=== PATIENT | male | born 1940 | race Caucasian/White ===

== ENCOUNTER → 2018-03-03 14:31 | Outpatient (POV) | payer MEDICARE, BC, SELFPAY | PROVIDERS: Family Provider Family Medicine; PCP Family Medicine | DX: Z00.00 Encounter for general adult medical examination without abnormal findings (principal) ==

== ENCOUNTER → 2018-09-21 15:13 | Outpatient (CLI) | payer MEDICARE, BC, SELFPAY ==
[2018-09-21 17:13] LABS: Prostate Specific Ag, Diagnost 0.83 ng/mL (0.0-4.0)
== END ==
PROVIDERS: Visit Provider Urology
DX: N40.0 Benign prostatic hyperplasia without lower urinary tract symptoms (principal)
CPT/HCPCS: 36415; 84153

== ENCOUNTER → 2019-03-02 14:26 | Outpatient (POV) | payer MEDICARE, BC, SELFPAY | DX: Z00.00 Encounter for general adult medical examination without abnormal findings (principal) ==

== ENCOUNTER → 2019-05-11 14:31 | Outpatient (POV) | payer MEDICARE, BC, SELFPAY | PROVIDERS: Visit Provider Internal Medicine | DX: Z00.00 Encounter for general adult medical examination without abnormal findings (principal) ==

== ENCOUNTER → 2019-05-24 09:05 | Outpatient (POV) | payer MEDICARE, BC, SELFPAY | PROVIDERS: Visit Provider Dermatology | DX: Z00.00 Encounter for general adult medical examination without abnormal findings (principal) ==

== ENCOUNTER → 2019-06-15 14:03 | Outpatient (POV) | payer MEDICARE, BC, SELFPAY | DX: Z00.00 Encounter for general adult medical examination without abnormal findings (principal) ==

== ENCOUNTER → 2020-04-10 16:24 | Outpatient (POV) | payer MEDICARE, BC, SELFPAY | PROVIDERS: Visit Provider Dermatology | DX: Z00.00 Encounter for general adult medical examination without abnormal findings (principal) ==

== ENCOUNTER 2020-09-05 10:34 | Emergency (ER) | payer MEDICARE, BC, SELFPAY ==
--- NOTE | 2020-09-05 10:41 | XR_ITS ---
PROCEDURE: XR SHOULDER RT MIN 2V CLINICAL INDICATION: FELL ON ICE Pain with movement COMPARISON: No exams were available for comparison FINDINGS: There is no fracture or dislocation. The acromioclavicular joint remains well approximated. Humeral acromial distance is normal. There is normal glenohumeral space and alignment. There is narrowing of the coracohumeral distance which can cause subcoracoid impingement correlate clinically. There is diffuse osteopenia. IMPRESSION: Possible subcoracoid impingement. Osteopenia. No acute fracture. Dictated by: Mine Jackson MD 09/05/2020 11:40 Mine Jackson MD in [place] 09/05/2020 11:40
[2020-09-05 10:45] VITALS: BP 138/90; PULSE 63; RESP 17; TEMP 36.8; O2SAT 98; BMI 29.4
--- NOTE | 2020-09-05 12:00 | HMH.EDUTC ---
[facility] [place] Clinical Impression: Right anterior shoulder pain Contusion of right shoulder Qualifiers: Encounter type: initial encounter Qualified Code(s): S40.011A - Contusion of right shoulder, initial encounter Right shoulder pain Qualifiers: Chronicity: unspecified Qualified Code(s): M25.511 - Pain in right shoulder Disposition: Home, Self-Care Condition on Discharge: Good Instructions: DI for Shoulder Pain Additional Instructions: Rest the extremity, apply ice for 15 minutes as tolerated three or four times per day, Elevate the extremity as tolerated while you are resting. Take ibuprofen for pain. Follow up with Dr. Mosquera (orthopedics). Sometimes there can be fractures that don't show up well on the first set of x-rays. So, you should follow up if you continue to have symptoms. I put in a referral but you need to call his office and schedule an appointment. Follow up with your regular doctor. GO TO THE ER FOR ANY WORSENING SYMPTOMS Referrals: Dinesh Davis MD [Primary Care Provider] - Ja Mosquera MD [Staff Physician] - Time of Disposition: 12:04 Medical Decision Making - Medical Records Medical records reviewed: No: I reviewed the patient's medical records. - Santos Inquiry Pt receiving controlled substance: No Vital Signs: 09/05/20 10:45 09/05/20 12:11 Temperature 98.2 F 98.2 F Temperature Source Oral Pulse Rate 63 Pulse Rate [Right Brachial] 63 Respiratory Rate 17 17 Blood Pressure 138/90 Blood Pressure [Right Arm] 138/90 Blood Pressure Mean [Right Arm] 106 Blood Pressure Source [Right Arm] Automatic Cuff Blood Pressure Position [Right Arm] Sitting 02 Sat by Pulse Oximetry 98 Oxygen Delivery Method Room Air - Radiology Data #1 Image(s): Shoulder Image Reviewed: Yes I reviewed the patient's radiology image, Yes I have reviewed radiologist's interpretation Preliminary Findings: Abnormal, No Fracture Seen PROCEDURE: XR SHOULDER RT MIN 2V CLINICAL INDICATION: FELL ON ICE Pain with movement COMPARISON: No exams were available for comparison FINDINGS: There is no fracture or dislocation. The acromioclavicular joint remains well approximated. Humeral acromial distance is normal. There is normal glenohumeral space and alignment. There is narrowing of the coracohumeral distance which can cause subcoracoid impingement correlate clinically. There is diffuse osteopenia. IMPRESSION: Possible subcoracoid impingement. Osteopenia. No acute fracture. Dictated by: Mine Jackson MD 09/05/2020 11:40 Mine Jackson MD in [place] 09/05/2020 11:40 [facility] [place] - General Stated complaint: AO [id number] right shoulder pain Time Seen by Provider: 09/05/20 10:50 Mode of Arrival: Ambulatory Source of Information: Patient Limitations: No Limitations Description of Symptoms (Recalled from Triage Doc. by RN): PATIENT STATES HE FELL ON ICE APPROX 0900 THIS MORNING AND INJURED RIGHT SHOULDER HEENT Symptoms (Recalled from RN notes): No Resp Symptoms (Recalled from RN notes): No Skin Symptoms (Recalled from RN notes): No MS Symptoms (Recalled from RN notes): Yes Functional Status (Recalled from RN notes): WNL - History of Present Illness Provider Complaint: He states that about 1 hour ago he fell on ice and came down on his right shoulder. Since then he has had right shoulder pain. He denies any other injury. - Related Data Home Medications Medication Instructions Recorded Confirmed aspirin 81 mg tablet,delayed 81 mg PO ONCE 11/24/17 09/21/18 release lisinopril 5 mg tablet 5 mg PO ONCE 11/24/17 09/21/18 nitroglycerin 0.4 mg sublingual 0.4 mg SUBLINGUAL Q5M PRN 11/24/17 09/21/18 tablet simvastatin 40 mg tablet 40 mg PO QAM 11/24/17 09/21/18 tamsulosin 0.4 mg capsule 0.4 mg PO ONCE 11/24/17 09/21/18 Allergies Allergy/AdvReac Type Severity Reaction Status Date / Time No Known Allergies Allergy Verified 03/30/20 11:17 - Worke
[2020-09-05 12:11] VITALS: BP 138/90; PULSE 63; RESP 17; TEMP 36.8; O2SAT 98
== END 2020-09-05 12:12 | disposition home or self-care (01) ==
PROVIDERS: Emergency Provider Nurse Practitioner Family; PCP Family Medicine
DX: S40.011A Contusion of right shoulder, initial encounter (principal); W00.0XXA Fall on same level due to ice and snow, initial encounter; Y92.89 Other specified places as the place of occurrence of the external cause; J45.909 Unspecified asthma, uncomplicated; I10 Essential (primary) hypertension; I25.2 Old myocardial infarction
CPT/HCPCS: G0463; 73030; 99202

== ENCOUNTER → 2020-09-24 13:06 | Outpatient (CLI) | payer MEDICARE, BC, SELFPAY ==
--- NOTE | 2020-09-24 13:06 | MR_ITS ---
PROCEDURE: MR SHOULDER RT WO CON CLINICAL INDICATION: right shoulder pain; evaluate for rotator cuff Pt fell on shoulder x2wks ago. Unable to raise arm above head. Weakness in arm. Prior x-ray 09-05-20. COMPARISON: CR XR SHOULDER RT MIN 2V from 09/05/2020 TECHNIQUE: Routine multiplanar multi echo sequences are performed without gadolinium enhancement. FINDINGS: There is complete tear the supraspinatus and infraspinatus tendons with retraction of the musculotendinous fibers. There is a high-riding humeral head with subacromial narrowing. The teres minor tendon is unremarkable. There is thickening of the subscapularis tendon distally consistent with tendinopathy/tendinosis. Motion artifact obscures fine detail. There does appear to be a tear of the posterior glenoid labrum. The bicipital tendon to the long head of the biceps is not identified and is suspected to be torn. There is a moderate size shoulder joint effusion as well as fluid in the sub coracoid region consistent with bursitis. Osteoarthritic changes are present at the AC joint and glenohumeral joint. IMPRESSION: 1. Complete tear of the supraspinatus and infraspinatus tendons with retraction of the musculotendinous fibers with high-riding humeral head. 2. Oblique tear posterior glenoid labrum 3. Nonvisualization of the long head of the biceps tendon which may be due to tendon displacement or tear. Motion artifact may also obscure tendon evaluation. Dictated by: Blayne Messer MD 09/26/2020 11:11 Blayne Messer MD in [place] 09/26/2020 11:11
== END ==
PROVIDERS: PCP Family Medicine; Visit Provider Orthopaedic Surgery
DX: M25.511 Pain in right shoulder (principal)
CPT/HCPCS: 73221

== ENCOUNTER → 2021-06-03 10:21 | Outpatient (CLI) | payer MEDICARE, BC, SELFPAY | PROVIDERS: Visit Provider Urology | DX: Z20.822 Contact with and (suspected) exposure to COVID-19 (principal) | CPT/HCPCS: C9803; U0003; U0005 ==

== ENCOUNTER → 2021-08-14 09:33 | Outpatient (CLI) | payer MEDICARE, BC, SELFPAY ==
--- NOTE | 2021-08-14 09:38 | XR_ITS ---
FINAL REPORT CLINICAL HISTORY: right shoulder pain, fall Jul 2021 FINDINGS: RIGHT SHOULDER Three views demonstrate no acute fracture or dislocation. The visualized joint spaces are normally aligned. There is some calcification or ossification at the insertion of the supraspinatus tendon. IMPRESSION: No acute bony abnormality. Some calcification or ossification at the insertion of the supraspinatus tendon Reviewed, Interpreted and Dictated by Michael Bingham MD Transcribed by Esperanza Tim Authenticated by Michael Bingham MD on 08/14/2021 10:40:00 AM [facility]
== END ==
PROVIDERS: PCP Family Medicine; Visit Provider Orthopaedic Surgery
DX: M25.511 Pain in right shoulder (principal)
CPT/HCPCS: 73030

== ENCOUNTER → 2021-08-20 14:18 | Outpatient (CLI) | payer MEDICARE, BC, SELFPAY ==
--- NOTE | 2021-08-20 14:21 | XR_ITS ---
FINAL REPORT CLINICAL HISTORY: COVID OUTPATIENT, COUGH, HX OF OPEN HEART SX COMPARISON: 05/19/2016 FINDINGS: SINGLE VIEW CHEST The heart is normal in size. The patient is status post median sternotomy. There are worsening bilateral pulmonary opacities consistent with bilateral pneumonia. There is no pneumothorax. IMPRESSION: Bilateral pneumonia. Reviewed, Interpreted and Dictated by Reid Fuentes III, MD Transcribed by Suellen Xavier Authenticated by Reid Fuentes III, MD on 08/20/2021 03:19:31 PM [facility]
[2021-08-20 15:29] LABS: Basophils % 0.4 % (0.1-2.0); Hematocrit 46.2 % (42.0-52.0); Hemoglobin 15.6 g/dL (14.1-18.0); Lymphocytes # 0.5 K/mm3 (0.7-4.5); Lymphocytes % 7.6 % (10-50); Mean Corpuscular HGB Conc 33.8 g/dL (31.8-35.4); Mean Corpuscular Hemoglobin 32.9 pg (27.0-31.2); Mean Corpuscular Volume 97.4 fl (80-94); Mean Platelet Volume 10.4 fl (7.4-10.4); Monocytes # 0.4 K/mm3 (0.1-1.0); Monocytes % 5.5 % (1.7-9.3); Neutrophils # 5.5 K/mm3 (1.8-7.8); Neutrophils % 86.5 % (37.0-80.0); Platelet Count 151 K/mm3 (142-424); Red Blood Count 4.74 M/mm3 (4.60-6.20); Red Cell Distribution Width 14.9 % (11.5-17.5); White Blood Count 6.3 K/mm3 (4.8-10.8)
[2021-08-20 15:44] LABS: Alanine Aminotransferase 50 U/L (12-78); Albumin Level 4.3 g/dl (3.5-5.0); Albumin/Globulin Ratio 1.1 (1.1-1.8); Alkaline Phosphatase 69 U/L (38-126); Anion Gap 19.7 mEq/L (5-15); Aspartate Amino Transferase 64 U/L (17-59); Bilirubin,Total 1.5 mg/dl (0.2-1.3); Blood Urea Nitrogen 31 mg/dl (9-20); Calcium 9.3 mg/dl (8.4-10.2); Carbon Dioxide 19 mmol/L (22.0-30.0); Chloride 101 mmol/L (98-107); Estimated Glomerular Filt Rate 81 ml/min (>60); GFR (African American) 98 ML/MIN (>60); Globulin 3.9 g/dL (1.3-3.2); Glucose 128 mg/dl (74-100); Potassium 4.7 mmoL/L (3.5-5.1); Sodium 135 mmol/L (136-145); Total Protein,Serum 8.2 g/dl (6.3-8.2)
[2021-08-20 15:53] LABS: MANUAL DIFFERENTIAL MANUAL DIFFERENTIAL (MANUAL DIFF)
[2021-08-20 17:59] LABS: Lymphocytes % 16 % (10-50); Monocytes % 6 % (2-9); Neutrophils % 78 % (42-76); Platelet Estimate Normal; Total Cells Counted 100
== END ==
PROVIDERS: PCP Family Medicine; Visit Provider Family Medicine
DX: U07.1 COVID-19 (principal)
CPT/HCPCS: 36415; 71045; 80053; 85007; 85025; C9803; U0003; U0005

== ENCOUNTER 2021-08-22 12:51 | Inpatient (IN) | payer MEDICARE, BC, SELFPAY ==
[2021-08-22] VITALS (14 sets, daily range): BP systolic 115–149; BP diastolic 52–77; PULSE 59–75; RESP 18–25; TEMP 36.6–37.3; O2SAT 89–97; BMI 28.0; BMI 26.8
--- NOTE | 2021-08-22 12:53 | ECG_ITS ---
APPROVED REPORT Exam: Resting ECG HR:69 bpm ECG Measurements Heart Rate 69 AXES ME 144 P 64 QRSd 85 QRS 58 QT 409 T 21 QTc 428 Conclusion SINUS RHYTHM WITH OCCASIONAL SUPRAVENTRICULAR PREMATURE COMPLEXES POSSIBLE INFERIOR MYOCARDIAL INFARCTION , PROBABLY OLD [30 ms Q WAVE IN II/aVF] BORDERLINE ECG UNCONFIRMED REPORT Electronically signed by : Dinesh Starks MD 08/22/2021 19:29:13
--- NOTE | 2021-08-22 12:54 | XR_ITS ---
FINAL REPORT CLINICAL HISTORY: WEAKNESS, covid COMPARISON: August 20, 2021 FINDINGS: Cardiomegaly is noted. There has been prior median sternotomy. There is worsening left lung opacity consistent with worsening pneumonia. There is persistent, mild right base opacity. There is no pneumothorax. The bony thorax is intact. IMPRESSION: Worsening left lung pneumonia. Persistent, mild right base opacity. Reviewed, Interpreted and Dictated by Reid Fuentes III, MD Transcribed by Mk Nguyen Authenticated by Reid Fuentes III, MD on 08/22/2021 01:22:07 PM [facility]
[2021-08-22 13:18] LABS: Influenza A, PCR Not Detected (NotDetected); Influenza B, PCR Not Detected (NotDetected)
[2021-08-22 13:25] LABS: Chloride 96 mmol/L (98-107); Sodium 127 mmol/L (136-145)
[2021-08-22 13:26] LABS: Potassium 4.3 mmoL/L (3.5-5.1)
[2021-08-22 13:28] LABS: Alanine Aminotransferase 70 U/L (12-78); Albumin Level 3.9 g/dl (3.5-5.0); Alkaline Phosphatase 62 U/L (38-126); Anion Gap 10.3 mEq/L (5-15); Aspartate Amino Transferase 92 U/L (17-59); Bilirubin,Total 1.5 mg/dl (0.2-1.3); Blood Urea Nitrogen 30 mg/dl (9-20); Carbon Dioxide 25 mmol/L (22.0-30.0); Creatinine Clearance Estimated 66 mL/min (50-200); Estimated Glomerular Filt Rate 81 ml/min (>60); GFR (African American) 98 ML/MIN (>60); Lactic Acid 1.9 mmol/L (0.7-2.1); Total Protein,Serum 7.9 g/dl (6.3-8.2)
[2021-08-22 13:29] LABS: Calcium 8.9 mg/dl (8.4-10.2); Glucose 98 mg/dl (74-100)
[2021-08-22 13:40] LABS: Troponin I 0.03 ng/ml (0.00-0.034)
[2021-08-22 13:55] LABS: Basophils % 0.8 % (0.1-2.0); Eosinophils % 0.1 % (0.1-12.0); Hematocrit 43.4 % (42.0-52.0); Hemoglobin 14.8 g/dL (14.1-18.0); Lymphocytes # 0.4 K/mm3 (0.7-4.5); Lymphocytes % 8.3 % (10-50); Mean Corpuscular HGB Conc 34.2 g/dL (31.8-35.4); Mean Corpuscular Hemoglobin 32.7 pg (27.0-31.2); Mean Corpuscular Volume 95.6 fl (80-94); Mean Platelet Volume 9.6 fl (7.4-10.4); Monocytes # 0.2 K/mm3 (0.1-1.0); Neutrophils # 4.6 K/mm3 (1.8-7.8); Platelet Count 168 K/mm3 (142-424); Red Blood Count 4.54 M/mm3 (4.60-6.20); Red Cell Distribution Width 14.7 % (11.5-17.5); White Blood Count 5.2 K/mm3 (4.8-10.8)
[2021-08-22 14:00] LABS: Coronavirus 19, PCR Detected (NotDetected)
[2021-08-22 14:02] LABS: MANUAL DIFFERENTIAL MANUAL DIFFERENTIAL (MANUAL DIFF)
[2021-08-22 14:16] LABS: Lymphocytes % 16 % (10-50); Monocytes % 3 % (2-9); Neutrophils % 81 % (42-76); Platelet Estimate Normal; RBC Morphology Normal; Total Cells Counted 100
--- NOTE | 2021-08-22 14:38 | CT_ITS ---
FINAL REPORT TECHNIQUE: Then section axial CT images of the chest were obtained with contrast. Three-D reformatted images were also obtained.This study was performed with techniques to keep radiation doses as low as reasonably achievable (ALARA). Individualized dose reduction techniques using automated exposure control or adjustment of mA and/or kV according to the patient''s size were employed. CLINICAL HISTORY: COVID + SOB hx of open heart FINDINGS: Motion artifact limits exam. There is evidence of sternotomy. There is no evidence of pulmonary embolism. There is no evidence of thoracic aortic aneurysm or dissection. There is left atrial and left ventricular enlargement. There is no evidence of mediastinal or hilar mass or adenopathy. There are multifocal pulmonary opacities consistent with multi focal pneumonia, likely viral pneumonia. Limited images of the upper abdomen demonstrate evidence of cholecystectomy. IMPRESSION: 1. No evidence of pulmonary embolism. 2. Multifocal pneumonia. Likely viral pneumonia. Reviewed, Interpreted and Dictated by Reid Fuentes III, MD Transcribed by Mk Nguyen Authenticated by Reid Fuentes III, MD on 08/22/2021 03:24:32 PM [facility]
--- NOTE | 2021-08-22 14:49 | PC.NURSE ---
Patient to radiology with motorcycle technician
--- NOTE | 2021-08-22 15:09 | PC.NURSE ---
Gave family an update up in the waiting room
--- NOTE | 2021-08-22 16:30 | HMH.EDWEAK ---
ED Disposition Clinical Impression: Pneumonia due to COVID-19 virus Acute respiratory failure Qualifiers: Respiratory failure complication: hypoxia Qualified Code(s): J96.01 - Acute respiratory failure with hypoxia Disposition: Admitted As Inpatient Condition on Discharge: Good Referrals: Dinesh Davis MD [Primary Care Provider] - - Critical Care Critical Care Time: No Attestation: On 08/22/21, the high probability of a clinically significant, sudden or life threatening deterioration of the following system(s) required my full and direct attention, intervention and personal management. The time I documented below is in addition to time spent performing reported procedures but includes the following listed in this critical care notation. Medical Decision Making - Medical Records Medical records reviewed: Yes: I reviewed the patient's medical records. - Santos Inquiry Pt receiving controlled substance: No Vital Signs: 08/22/21 12:52 08/22/21 13:16 08/22/21 13:21 Temperature 98.9 F Temperature Source Oral Pulse Rate 67 Pulse Rate [Radial] 67 Respiratory Rate 20 Blood Pressure 127/68 Blood Pressure [Right Arm] 126/56 L Blood Pressure Mean [Right Arm] 79 Blood Pressure Position [Right Arm] Sitting 02 Sat by Pulse Oximetry 89 L 95 94 L Oxygen Delivery Method Room Air Nasal Cannula Nasal Cannula Oxygen Flow Rate (LPM) 2 2 - Lab Data Lab results reviewed: Yes: I reviewed the patient's lab results. Lab Results 08/22/21 13:00: WBC 5.2, RBC 4.54 L, Hgb 14.8, Hct 43.4, MCV 95.6 H, MCH 32.7 H, MCHC 34.2, RDW 14.7, Plt Count 168, MPV 9.6, Neut % (Auto) 88.0 H, Lymph % (Auto) 8.3 L, [place] % (Auto) 3.0, Eos % (Auto) 0.1, Baso % (Auto) 0.8, Neut # (Auto) 4.6, Lymph # (Auto) 0.4 L, [place] # (Auto) 0.2, Eos # (Auto) 0.0, Baso # (Auto) 0.0, Total Counted 100, Neutrophils % (Manual) 81 H, Lymphocytes % (Manual) 16, Monocytes % (Manual) 3, Platelet Estimate Normal, RBC Morphology Normal 08/22/21 13:00: Sodium 127 L, Potassium 4.3, Chloride 96 L, Carbon Dioxide 25, Anion Gap 10.3, BUN 30 H, Creatinine 0.90, Estimated Creat Clear 66, Estimated GFR 81, Est GFR ( Amer) 98, Glucose 98, Calcium 8.9, Total Bilirubin 1.5 H, AST 92 H D, ALT 70 D, Alkaline Phosphatase 62, Troponin I 0.03, Total Protein 7.9, Albumin 3.9, Globulin 4.0 H, Albumin/Globulin Ratio 1.0 L 08/22/21 13:00: Lactate 1.9 08/22/21 13:10: SARS-CoV-2 (PCR) Detected A, Influenza A Untype (PCR) Not detected, Influenza Type B (PCR) Not detected Result diagrams: 08/22/21 13:00 08/22/21 13:00 Orders (Tests/Meds): ED MEDICATIONS Generic Name Dose Route Start Last Admin Trade Name Freq PRN Reason Stop Dose Admin Levofloxacin/Dextrose 500 mg in 100 mls @ 100 mls/hr 08/22/21 16:39 08/22/21 16:44 Levaquin 500mg/100ml Premix IV 08/22/21 17:38 100 mls/hr ONCE ONE Administration Discontinued Medications Generic Name Dose Route Start Last Admin Trade Name Freq PRN Reason Stop Dose Admin Dexamethasone Sodium Phosphate 10 mg 08/22/21 16:38 08/22/21 16:44 Dexamethasone 4mg/Ml 1ml Vial IV 08/22/21 16:39 10 mg ONCE ONE Administration Iopamidol 70 ml 08/22/21 14:57 08/22/21 14:59 Iopamidol-370 (76%);100ml Bottle IV 08/22/21 14:58 70 ml ONCE ONE Administration Sodium Chloride 50 ml 08/22/21 14:57 08/22/21 14:58 0.9 % Sodium Chloride 50 Ml Vial IV 08/22/21 14:58 50 ml ONCE ONE Administration Sodium Chloride 10 ml 08/22/21 14:57 08/22/21 14:59 Sodium Chloride 0.9% 10ml Syr (Rad Only) IV 08/22/21 14:58 10 ml ONCE ONE Administration ORDERS Category Date Time Status Troponin I Q3H Lab 08/22/21 16:00 Ordered Troponin I Q3H Lab 08/22/21 19:00 Ordered Blood Culture Stat Micro 08/22/21 13:00 Received - Radiology Data #1 Image(s): Chest Image Reviewed: Yes I have reviewed radiologist's interpretation Preliminary Findings: Abnormal - CT Data CT Scan: Chest Time Receive
--- NOTE | 2021-08-22 16:32 | PC.NURSE ---
UPDATED PT'S TOLD HER OF PT'S ADMISSION. PASSWORD IS [id number]
--- NOTE | 2021-08-22 16:39 | PC.NURSE ---
had bone char kiln operator page whoever was on for kermit bone char kiln operator said donte was on duty, asked them to aguilar him and call dr calle in the er
--- NOTE | 2021-08-22 16:50 | PC.NURSE ---
donte called back and talked to dr Mario
--- NOTE | 2021-08-22 17:06 | PC.NURSE ---
pt being admitted to [address] to [facility] pneumonia regular admit
--- NOTE | 2021-08-22 17:14 | PC.NURSE ---
REPORT CALLED TO FLOOR
--- NOTE | 2021-08-22 17:16 | PC.NURSE ---
srna from 2nd floor here to get pt
[2021-08-22 17:22] LABS: Troponin I 0.02 ng/ml (0.00-0.034)
--- NOTE | 2021-08-22 17:22 | PC.NURSE ---
Pt arrived to the floor at this time
[2021-08-23] VITALS: BP 112/63; PULSE 47; RESP 24; TEMP 36.4; O2SAT 96
[2021-08-23 04:00] VITALS: BP 135/60; PULSE 53; RESP 24; TEMP 36.3; O2SAT 97
--- NOTE | 2021-08-23 04:54 | PC.NURSE ---
At beginning of shift, pt reported feeling extremely weak, and could not even hold his glass of water to take his evening medications. Pt was noted to have elevated temperature at beginning of shift, was medicated per sep with Tylenol. Pt slept soundly afterwards. During morning reassessment/rounds it was noted that patient was cool to touch, and pt clothes felt wet. Pt now afebrile, and reports being cold. Temp checked, 97.9 orally. Pt was assisted to the bathroom, then assisted to the recliner and wet shirt changed to a dry one. Pt reports he still feels weak this morning, but not as weak as yesterday. Denies worsening soa, but pt does appear to be sob with exertion. Pt remains on O2 at 2-3 L NC. Labored breathing after exertion, mild diaphoresis noted to face after returning from bathroom. Wheezing from initial assessment has decreased. Pt taking fluids orally without difficulty. VSS. Pt updated on plan of care. No acute distress noted at this time. Will continue to monitor.
[2021-08-23 07:00] LABS: Basophils # 0.1 K/mm3 (0-0.2); Basophils % 1.9 % (0.1-2.0); Eosinophils % 0.2 % (0.1-12.0); Hematocrit 51.7 % (42.0-52.0); Lymphocytes # 0.4 K/mm3 (0.7-4.5); Lymphocytes % 13.8 % (10-50); Mean Corpuscular HGB Conc 33.7 g/dL (31.8-35.4); Mean Corpuscular Hemoglobin 32.4 pg (27.0-31.2); Mean Corpuscular Volume 96.1 fl (80-94); Mean Platelet Volume 10.6 fl (7.4-10.4); Monocytes # 0.3 K/mm3 (0.1-1.0); Monocytes % 8.1 % (1.7-9.3); Neutrophils # 2.5 K/mm3 (1.8-7.8); Neutrophils % 77.8 % (37.0-80.0); Platelet Count 150 K/mm3 (142-424); Red Blood Count 5.38 M/mm3 (4.60-6.20); Red Cell Distribution Width 14.7 % (11.5-17.5); White Blood Count 3.2 K/mm3 (4.8-10.8)
[2021-08-23 07:05] LABS: Hemoglobin 17.4 g/dL (14.1-18.0)
[2021-08-23 07:11] LABS: Chloride 102 mmol/L (98-107)
[2021-08-23 07:14] LABS: Blood Urea Nitrogen 35 mg/dl (9-20); Creatinine Clearance Estimated 63 mL/min (50-200); Estimated Glomerular Filt Rate 109 ml/min (>60); GFR (African American) 131 ML/MIN (>60); Sodium 129 mmol/L (136-145)
[2021-08-23 07:15] LABS: Anion Gap 13.7 mEq/L (5-15); Carbon Dioxide 19 mmol/L (22.0-30.0); Potassium 5.7 mmoL/L (3.5-5.1)
[2021-08-23 07:18] LABS: Calcium 8.7 mg/dl (8.4-10.2); Glucose 124 mg/dl (74-100); Magnesium 2.5 mg/dl (1.6-2.3)
[2021-08-23 08:00] VITALS: BP 144/68; PULSE 48; RESP 20; O2SAT 96
--- NOTE | 2021-08-23 08:00 | XR_ITS ---
FINAL REPORT CLINICAL HISTORY: sob COMPARISON: One day prior FINDINGS: Cardiomegaly is noted. There has been prior median sternotomy. There are persistent bilateral pulmonary opacities consistent with bilateral pneumonia. There is no pleural effusion. There is no pneumothorax. The bony thorax is intact. IMPRESSION: Bilateral pneumonia, not significantly changed. Reviewed, Interpreted and Dictated by Reid Fuentes III, MD Transcribed by Mk Nguyen Authenticated by Reid Fuentes III, MD on 08/23/2021 07:54:08 AM [facility]
--- NOTE | 2021-08-23 08:09 | P.CONPHA_ITS ---
[facility] Pharmacy VTE Monitoring - Patient Demographics Admission date: 08/23/21 Report Date: 08/23/21 Time: 08:09 Allergies/Adverse Reactions: Patient Allergies No Known Allergies Allergy (Verified 08/14/21 10:33) Height: 1.68 m Weight: 75.325 kg Patient Problems: Current Active Problems Pneumonia due to COVID-19 virus (Acute) Acute respiratory failure (Acute) - VTE Risk Labs: VTE Related Lab Results Hgb 17.4 g/dL (14.1-18.0) D 08/23/21 06:29 Hct 51.7 % (42.0-52.0) 08/23/21 06:29 Plt Count 150 K/mm3 (142-424) 08/23/21 06:29 BUN 35 mg/dl (9-20) H 08/23/21 06:29 Creatinine 0.70 mg/dl (0.66-1.25) D 08/23/21 06:29 Estimated Creat Clear 63 mL/min (50-200) 08/23/21 06:29 Was VTE Risk Assessment Performed: Yes VTE Score: 8 VTE Risk Level: Moderate Risk Clinical Trial Participant: No - Prophylaxis VTE Prophylaxis Ordered?: Yes Types of VTE Prophylaxis: TEDS Knee High
--- NOTE | 2021-08-23 08:26 | HMH.PHAINT ---
home medication list verified using list from [facility]
--- NOTE | 2021-08-23 08:39 | HMH.HP ---
*Admission Date: 08/22/21 *Chief complaint: Weakness *History of present illness: 80-year-old male previously diagnosed with COVID-19 who is been symptomatic for at least 10 days presented to the emergency department with increasing weakness. He denies shortness of breath. He was hypoxic in route via EMS with O2 sat in the mid 80s. Imaging revealed bilateral infiltrates. Patient had an oxygen requirement. Patient been admitted for COVID 19 pneumonia with mild acute respiratory failure. He has been admitted and placed on Remdesivir, dexamethasone, supplemental oxygen. Levaquin has been added to cover community-acquired pneumonia. Patient had yet to be vaccinated for COVID-19 [facility] History I have reviewed the patient's past medical history: Yes Medical History: Reports:: Asthma, Hyperlipidemia, Hypertension, Lung Disease, Myocardial Infarction, Tuberculosis Denies:: Diabetes Mellitus Type 1, Diabetes Mellitus Type 2 *Have you ever received a pneumonia vaccine?: Yes *Have you received a flu vaccine this season?: Yes Other Medical History: Reports: Chemotherapy, Radiation Therapy Other Surgeries: Yes: Colon Resection, Colostomy, Open Heart Surgery, Other - *Social History Smoking Status: Never smoker Alcohol Intake: never Substance Use Type: denies use *Occupational Status:: retired Household Members: spouse *Travel in the last 8 weeks: None Family Hx:: Cancer Review of Systems - Constitutional Reports body ache(s), Reports lack of energy - Eyes Denies change in vision, Denies loss of vision - ENT Reports abnormal hearing - *Cardiovascular Denies chest pain, Denies chest pain at rest, Denies shortness of breath with activity - *Respiratory Denies change in phlegm color, Denies chest congestion, Denies cough - *Gastrointestinal Denies abdominal pain, Denies belching, Denies bloating - *Genitourinary Denies difficulty with ejaculations - *Musculoskeletal Denies joint pain - Integumentary/Breasts Denies hair loss - *Neurologic Reports weakness, Denies abnormal hearing, Denies seizure-like activity, Denies headache(s), Denies seizure-like activity - Psychiatric Denies lack of enjoyment, Denies anxiety Meds Home Medications Medication Instructions Recorded Confirmed Type aspirin 81 mg tablet,delayed 81 mg PO DAILY 11/24/17 08/23/21 History release lisinopril 5 mg tablet 5 mg PO DAILY 11/24/17 08/23/21 History nitroglycerin 0.4 mg sublingual 0.4 mg SUBLINGUAL Q5M PRN 11/24/17 08/22/21 History tablet tamsulosin 0.4 mg capsule 0.4 mg PO HS 11/24/17 08/23/21 History levoFLOXacin [Levofloxacin] 500 mg PO DAILY 08/22/21 08/22/21 History Atorvastatin Calcium [Lipitor 40mg 40 mg PO HS 08/23/21 08/23/21 History Tab] Allergies Allergy/AdvReac Type Severity Reaction Status Date / Time No Known Allergies Allergy Verified 08/14/21 10:33 Exam Vital signs and Labs for Last 24 Hours: Temp Pulse Resp BP Pulse Ox 97.4 F L 48 L 20 144/68 H 96 08/23/21 04:00 08/23/21 08:00 08/23/21 08:00 08/23/21 08:00 08/23/21 08:00 Laboratory Results - last 24 hr 08/22/21 13:00: WBC 5.2, RBC 4.54 L, Hgb 14.8, Hct 43.4, MCV 95.6 H, MCH 32.7 H, MCHC 34.2, RDW 14.7, Plt Count 168, MPV 9.6, Neut % (Auto) 88.0 H, Lymph % (Auto) 8.3 L, [place] % (Auto) 3.0, Eos % (Auto) 0.1, Baso % (Auto) 0.8, Neut # (Auto) 4.6, Lymph # (Auto) 0.4 L, [place] # (Auto) 0.2, Eos # (Auto) 0.0, Baso # (Auto) 0.0, Total Counted 100, Neutrophils % (Manual) 81 H, Lymphocytes % (Manual) 16, Monocytes % (Manual) 3, Platelet Estimate Normal, RBC Morphology Normal 08/22/21 13:00: Sodium 127 L, Potassium 4.3, Chloride 96 L, Carbon Dioxide 25, Anion Gap 10.3, BUN 30 H, Creatinine 0.90, Estimated Creat Clear 66, Estimated GFR 81, Est GFR ( Amer) 98, Glucose 98, Calcium 8.9, Total Bilirubin 1.5 H, AST 92 H D, ALT 70 D, Alkaline Phosphatase 62, Troponin I 0.03, Total Protein 7.9, Albumin 3.9, Globulin 4.0 H, Albumin/Globulin Ratio 1.0 L
[2021-08-23 09:53] LABS: Bilirubin,Unconjugated 0.7 mg/dL (0.0-1.1)
[2021-08-23 09:54] LABS: Alanine Aminotransferase 66 U/L (12-78); Albumin Level 3.3 g/dl (3.5-5.0); Alkaline Phosphatase 55 U/L (38-126); Aspartate Amino Transferase 83 U/L (17-59); Bilirubin,Direct 0.6 mg/dl (0.0-0.4); Bilirubin,Indirect 0.7 mg/dL (0.0-0.9); Bilirubin,Total 1.3 mg/dl (0.2-1.3); Total Protein,Serum 6.9 g/dl (6.3-8.2)
[2021-08-23 12:00] VITALS: BP 121/63; PULSE 55; RESP 20; TEMP 36.1; O2SAT 97
[2021-08-23 16:00] VITALS: BP 146/65; PULSE 57; RESP 20; TEMP 35.9; O2SAT 99
[2021-08-23 17:05] VITALS: BMI 26.5
[2021-08-23 20:00] VITALS: BP 141/66; PULSE 65; RESP 24; TEMP 36.4; O2SAT 94
[2021-08-24] VITALS (8 sets, daily range): BP systolic 115–136; BP diastolic 57–80; PULSE 52–58; RESP 16–22; TEMP 36.2–36.9; O2SAT 92–97; BMI 26.7
--- NOTE | 2021-08-24 04:52 | PC.NURSE ---
A&OX4. TOLERATING 3LNC WELL. PT HAS HAD NO C/O THUS FAR. UP TO BATHROOM WITH STANDBY ASSIST. PT DOES FEEL VERY WEAK AND WINDED WITH AMBULATION. RESTING WELL T/O MAJORITY OF SHIFT. VSS WILL CONTINUE TO MONITOR.
[2021-08-24 06:26] LABS: Chloride 103 mmol/L (98-107)
[2021-08-24 06:27] LABS: Potassium 4.2 mmoL/L (3.5-5.1); Sodium 129 mmol/L (136-145)
[2021-08-24 06:29] LABS: Alanine Aminotransferase 64 U/L (12-78); Alkaline Phosphatase 59 U/L (38-126); Aspartate Amino Transferase 88 U/L (17-59); Bilirubin,Total 1.3 mg/dl (0.2-1.3); Blood Urea Nitrogen 35 mg/dl (9-20); Creatinine Clearance Estimated 63 mL/min (50-200); Estimated Glomerular Filt Rate 109 ml/min (>60); GFR (African American) 131 ML/MIN (>60)
[2021-08-24 06:30] LABS: Albumin Level 3.2 g/dl (3.5-5.0); Albumin/Globulin Ratio 0.9 (1.1-1.8); Anion Gap 9.2 mEq/L (5-15); Calcium 8.3 mg/dl (8.4-10.2); Carbon Dioxide 21 mmol/L (22.0-30.0); Globulin 3.5 g/dL (1.3-3.2); Glucose 118 mg/dl (74-100); Total Protein,Serum 6.7 g/dl (6.3-8.2)
[2021-08-24 06:33] LABS: Basophils # 0.1 K/mm3 (0-0.2); Basophils % 0.9 % (0.1-2.0); Eosinophils % 0.1 % (0.1-12.0); Hematocrit 42.8 % (42.0-52.0); Lymphocytes # 0.4 K/mm3 (0.7-4.5); Mean Corpuscular HGB Conc 32.7 g/dL (31.8-35.4); Mean Corpuscular Hemoglobin 32.1 pg (27.0-31.2); Mean Corpuscular Volume 98.2 fl (80-94); Mean Platelet Volume 10.4 fl (7.4-10.4); Monocytes # 0.2 K/mm3 (0.1-1.0); Neutrophils # 5.8 K/mm3 (1.8-7.8); Platelet Count 159 K/mm3 (142-424); Red Blood Count 4.36 M/mm3 (4.60-6.20); Red Cell Distribution Width 14.7 % (11.5-17.5); White Blood Count 6.5 K/mm3 (4.8-10.8)
[2021-08-24 06:47] LABS: MANUAL DIFFERENTIAL MANUAL DIFFERENTIAL (MANUAL DIFF)
[2021-08-24 08:22] LABS: Lymphocytes % 6 % (10-50); Monocytes % 5 % (2-9); Neutrophils % 89 % (42-76); Total Cells Counted 100
[2021-08-24 08:23] LABS: Platelet Estimate Normal; RBC Morphology Normal
--- NOTE | 2021-08-24 08:23 | HMH.ACPN2 ---
Internal Medicine - PN: Subj *Date: 08/24/21 *Time: 08:23 Interval history: Patient reports feeling better. No acute events over the last 24 hours. He has been able to ambulate with standby assist. O2 sats remained in the low 90s on 3 L Exam Vital signs and Labs for Last 24 Hours: Temp Pulse Resp BP Pulse Ox 97.4 F L 53 L 18 123/57 L 95 08/24/21 07:59 08/24/21 07:59 08/24/21 07:59 08/24/21 07:59 08/24/21 07:59 Laboratory Results - last 24 hr 08/23/21 08:33: Total Bilirubin 1.3, Direct Bilirubin 0.6 H, Conjugated Bilirubin 0.0, Indirect Bilirubin 0.7, Unconjugated Bilirubin 0.7, AST 83 H, ALT 66, Alkaline Phosphatase 55, Total Protein 6.9, Albumin 3.3 L D 08/24/21 05:40: Sodium 129 L, Potassium 4.2 D, Chloride 103, Carbon Dioxide 21 L, Anion Gap 9.2, BUN 35 H, Creatinine 0.70, Estimated Creat Clear 63, Estimated GFR 109, Est GFR ( Amer) 131, Glucose 118 H, Calcium 8.3 L, Total Bilirubin 1.3, AST 88 H, ALT 64, Alkaline Phosphatase 59, Total Protein 6.7, Albumin 3.2 L, Globulin 3.5 H, Albumin/Globulin Ratio 0.9 L 08/24/21 06:00: WBC 6.5 D, RBC 4.36 L, Hct 42.8, MCV 98.2 H, MCH 32.1 H, MCHC 32.7, RDW 14.7, Plt Count 159, MPV 10.4, Neut % (Auto) 90.0 H, Lymph % (Auto) 6.0 L, [place] % (Auto) 3.0, Eos % (Auto) 0.1, Baso % (Auto) 0.9, Neut # (Auto) 5.8, Lymph # (Auto) 0.4 L, [place] # (Auto) 0.2, Eos # (Auto) 0.0, Baso # (Auto) 0.1, Total Counted 100, Neutrophils % (Manual) 89 H, Lymphocytes % (Manual) 6 L, Monocytes % (Manual) 5, Platelet Estimate Normal, RBC Morphology Normal I & O for Last 24 hours: Intake & Output 08/21/21 08/22/21 08/23/21 08/24/21 11:59 11:59 11:59 11:59 Intake Total 616 / 616 240 / 240 Output Total 300 / 300 Balance 316 / 316 240 / 240 Weight 166 lb 1 oz 166 lb 6.4 oz Narrative: Patient looks better than yesterday. He does not appears weak. Lungs have some rales anteriorly this morning. Heart has a regular rate and rhythm. Lower extremities have no edema Assessment and Plan (1) Pneumonia due to COVID-19 virus Status: Acute Category: Medical Code(s): U07.1 - COVID-19; J12.82 - Pneumonia due to coronavirus disease 2018 (2) Arteriosclerotic heart disease (ASHD) Status: Acute Category: Medical Code(s): I25.10 - Atherosclerotic heart disease of [place] coronary artery without angina pectoris (3) Acute respiratory failure Status: Acute Qualifiers: Respiratory failure complication: hypoxia Qualified Code(s): J96.01 - Acute respiratory failure with hypoxia Category: Medical Code(s): J96.00 - Acute respiratory failure, unspecified whether with hypoxia or hypercapnia - Assessment and plan all Dx Assessment and Plan for all problems:: 1. Continue Remdesivir and dexamethasone for COVID-19 pneumonia with acute respiratory failure 2. Patient appears to be improving. If he continues to progress anticipate discharge tomorrow
[2021-08-25] VITALS: BP 97/50; PULSE 50; RESP 16; TEMP 36.9; O2SAT 95
[2021-08-25 04:00] VITALS: BP 116/55; PULSE 53; RESP 18; TEMP 36.6; O2SAT 92
[2021-08-25 05:00] VITALS: BMI 26.6
[2021-08-25 06:40] LABS: Basophils # 0.1 K/mm3 (0-0.2); Hematocrit 39.6 % (42.0-52.0); Hemoglobin 13.5 g/dL (14.1-18.0); Lymphocytes # 0.7 K/mm3 (0.7-4.5); Lymphocytes % 7.9 % (10-50); Mean Corpuscular Hemoglobin 32.1 pg (27.0-31.2); Mean Corpuscular Volume 94.5 fl (80-94); Mean Platelet Volume 12.4 fl (7.4-10.4); Monocytes # 0.5 K/mm3 (0.1-1.0); Monocytes % 5.4 % (1.7-9.3); Neutrophils # 7.5 K/mm3 (1.8-7.8); Neutrophils % 85.7 % (37.0-80.0); Platelet Count 186 K/mm3 (142-424); Red Blood Count 4.19 M/mm3 (4.60-6.20); Red Cell Distribution Width 14.4 % (11.5-17.5); White Blood Count 8.7 K/mm3 (4.8-10.8)
[2021-08-25 07:07] LABS: Chloride 105 mmol/L (98-107); Sodium 130 mmol/L (136-145)
[2021-08-25 07:08] LABS: Potassium 4.8 mmoL/L (3.5-5.1)
[2021-08-25 07:10] LABS: Alanine Aminotransferase 57 U/L (12-78); Albumin Level 2.9 g/dl (3.5-5.0); Alkaline Phosphatase 49 U/L (38-126); Aspartate Amino Transferase 71 U/L (17-59); Bilirubin,Total 1.1 mg/dl (0.2-1.3); Blood Urea Nitrogen 32 mg/dl (9-20); Creatinine Clearance Estimated 63 mL/min (50-200); Estimated Glomerular Filt Rate 130 ml/min (>60); GFR (African American) 157 ML/MIN (>60); Total Protein,Serum 5.9 g/dl (6.3-8.2)
[2021-08-25 07:11] LABS: Anion Gap 8.8 mEq/L (5-15); Calcium 8.2 mg/dl (8.4-10.2); Carbon Dioxide 21 mmol/L (22.0-30.0); Glucose 97 mg/dl (74-100)
[2021-08-25 07:13] LABS: MANUAL DIFFERENTIAL MANUAL DIFFERENTIAL (MANUAL DIFF)
[2021-08-25 08:00] VITALS: BP 140/63; PULSE 73; RESP 20; TEMP 36.7; O2SAT 88; O2SAT 92
[2021-08-25 08:05] LABS: Lymphocytes % 9 % (10-50); Monocytes % 6 % (2-9); Neutrophils % 84 % (42-76); Total Cells Counted 100
[2021-08-25 08:06] LABS: Platelet Estimate Normal; RBC Morphology Normal
--- NOTE | 2021-08-25 08:31 | HMH.DCSUM ---
General - General Admission date:: 08/22/21 Discharge date: 08/25/21 HPI HPI: 80-year-old male previously diagnosed with COVID-19 who is been symptomatic for at least 10 days presented to the emergency department with increasing weakness. He denies shortness of breath. He was hypoxic in route via EMS with O2 sat in the mid 80s. Imaging revealed bilateral infiltrates. Patient had an oxygen requirement. Patient been admitted for COVID 19 pneumonia with mild acute respiratory failure. He has been admitted and placed on Remdesivir, dexamethasone, supplemental oxygen. Levaquin has been added to cover community-acquired pneumonia. Patient had yet to be vaccinated for COVID-19 Hospital Course Hospital Course: Patient was admitted for mild acute respiratory failure secondary to COVID-19 pneumonia. He was admitted and placed on Remdesivir and dexamethasone. He required supplemental oxygen at 3 L/min. Patient remained on supplemental oxygen at 3 L/min without any increasing oxygen requirement. Patient responded to treatment within 48 hours and after 72 hours was feeling better. He was ambulating without shortness of breath. He denied any dyspnea at rest. Patient had resting room air sat of 88%. He will require supplemental oxygen at discharge. He was discharged home with oxygen at 3 L/min Objective Vital signs: Temp Pulse Resp BP Pulse Ox 98.1 F 73 20 140/63 88 L 08/25/21 08:00 08/25/21 08:00 08/25/21 08:00 08/25/21 08:00 08/25/21 08:00 no acute distress - *Routine Respiratory Exam Present: rales - *Routine Cardiovascular Exam Present: RRR Results Labs on day of discharge: Labs from last 24 hours 08/25/21 08/25/21 08/24/21 05:38 05:38 06:00 WBC 8.7 D RBC 4.19 L Hgb 13.5 L 14.0 L D Hct 39.6 L MCV 94.5 H MCH 32.1 H MCHC 34.0 RDW 14.4 Plt Count 186 MPV 12.4 H Neut % (Auto) 85.7 H Lymph % (Auto) 7.9 L [place] % (Auto) 5.4 Eos % (Auto) 0.0 L Baso % (Auto) 1.0 Neut # (Auto) 7.5 Lymph # (Auto) 0.7 [place] # (Auto) 0.5 Eos # (Auto) 0.0 Baso # (Auto) 0.1 Total Counted 100 Neutrophils % (Manual) 84 H Lymphocytes % (Manual) 9 L Monocytes % (Manual) 6 Blast Cells % 1.0 Platelet Estimate Normal RBC Morphology Normal Sodium 130 L Potassium 4.8 Chloride 105 Carbon Dioxide 21 L Anion Gap 8.8 BUN 32 H Creatinine 0.60 L Estimated Creat Clear 63 Estimated GFR 130 Est GFR ( Amer) 157 Glucose 97 Calcium 8.2 L Total Bilirubin 1.1 AST 71 H ALT 57 Alkaline Phosphatase 49 Total Protein 5.9 L Albumin 2.9 L Globulin 3.0 Albumin/Globulin Ratio 1.0 L Preliminary micro results at discharge 08/22/21 13:00 Blood Culture - Preliminary Blood NO GROWTH AFTER 48 HOURS 08/22/21 13:00 Blood Culture - Preliminary Blood NO GROWTH AFTER 48 HOURS DS: Diagnosis - Discharge Diagnosis (1) Pneumonia due to COVID-19 virus Status: Acute (2) Arteriosclerotic heart disease (ASHD) Status: Acute (3) Acute respiratory failure Status: Acute Discharge Plan - Patient Discharge Instructions ACTIVITY: Continue current activity DIET: continue same diet Patient Instructions: DI for COVID-19 (Suspected or Confirmed ), Nutrition and Hydration: [employer] in the Fight Against COVID-19 - Follow up Plan Follow up with: Dinesh Davis MD [Primary Care Provider] - 1 week Disposition: Home, Self-Care Condition at discharge:: Improved Home Medications: Home Medications Medication Instructions Recorded Confirmed Type aspirin 81 mg tablet,delayed 81 mg PO DAILY 11/24/17 08/23/21 History release lisinopril 5 mg tablet 5 mg PO DAILY 11/24/17 08/23/21 History nitroglycerin 0.4 mg sublingual 0.4 mg SUBLINGUAL Q5M PRN 11/24/17 08/22/21 History tablet tamsulosin 0.4 mg capsule 0.4 mg PO HS 11/24/17 08/23/21 History levoF
--- NOTE | 2021-08-25 09:41 | PC.NURSE ---
patient on room air O2 saturation 82%
== END 2021-08-25 12:55 | disposition home or self-care (01) | DRG 177 ==
LOC: ER 16:54 → 2ND 08-23 07:22
PROVIDERS: Admitting Provider Internal Medicine Adolescent Medicine; Emergency Provider Emergency Medicine; PCP Family Medicine; Visit Provider Family Medicine
DX: U07.1 COVID-19 (principal); J12.82 Pneumonia due to coronavirus disease 2019; J96.01 Acute respiratory failure with hypoxia; I25.2 Old myocardial infarction; E78.5 Hyperlipidemia, unspecified; Z86.11 Personal history of tuberculosis
CPT/HCPCS: 36415; 71045; 71275; 80048; 80053; 80076; 83605; 83735; 84484; 85007; 85025; 87040; 87070; 87205; 93005; 96365; 96375; 99284; C9803; J1956; Q9967; U0003; U0005

== ENCOUNTER 2021-09-11 15:15 | Inpatient (IN) | payer MEDICARE, BC, SELFPAY ==
[2021-09-11] VITALS (18 sets, daily range): BP systolic 89–128; BP diastolic 62–79; PULSE 99–118; RESP 22–40; TEMP 36.6–37; O2SAT 90–95; BMI 26.6
--- NOTE | 2021-09-11 | IR_ITS ---
APPROVED REPORT Patient Location: [facility] Customer Service Clerk: LAKSHMI Cason RT (R) PROCEDURES Left heart catheterization Left ventriculogram Selective coronary angiogram Selective engagement left internal mammary artery with angiography Selective engagement of the saphenous vein graft to the right coronary Left retrograde femoral angiography Catheter placed in the right common iliac artery Right common iliac artery antegrade angiogram INDICATION Coronary artery disease, History of coronary bypass surgery, Acute non-ST elevation myocardial infarction, Peripheral artery disease, Bilateral femoral artery atherosclerosis Informed consent was obtained prior to the procedure. COMPLICATIONS none Estimated Blood Loss: less than 10 ml TECHNIQUE One percent lidocaine used to anesthetize the right groin. The right femoral artery was accessed via the Seldinger technique and a 5 Frisian sheath was placed in the right femoral artery. A JL 4, JR4 catheter were used to perform left heart catheterization, left ventriculogram selective coronary angiography as well as selective engagement of the one vein graft and the left internal mammary artery. At the end of the procedure the patient was transferred to the postop holding area in stable condition for sheath removal. ANGIOGRAPHIC RESULTS The left main artery Ostially occluded The right coronary artery Dominant and ostially occluded The DOUGLASS ventriculogram reveals Severe left ventricular dilatation global hypokinesis estimated ejection fraction 15% The left ventricular end-diastolic pressure Severely elevated at 30 mmHg WALL graft widely patent to mid LAD Saphenous vein graft widely patent to dominant right coronary artery with antegrade filling of a large posterior descending artery and posterior lateral branch. Scant right to left collaterals fill a vestigial and mostly atretic circumflex artery The left common and external iliac artery are tortuous with calcification and no focal stenosis greater than 50%. The left common femoral artery is densely calcified and subtotally occluded The right common femoral artery is densely calcified and subtotally occluded at mid segment while the right common and external iliac arteries are patent IMPRESSION Coronary artery disease as described above Severe left ventricular dysfunction with severely elevated LVEDP Elevated troponin most likely stemming from type II myocardial infarction Possible and probable myocarditis likely from recent Covid 19 Bilateral common femoral artery subtotal occlusion with dense calcification PLAN 1. Diuresis with Lasix 2. Start Entresto first and then add carvedilol once patient is tolerating the Entresto. Patient's sinus tachycardia is compensatory at this point and should not be treated with beta-blockers until diuresis and adequate afterload reduction is achieved 3. LDL less than 55 to be achieved with high intensity statin 4. Patient has an ejection fraction which warrants a LifeVest however patient may not be a candidate for other associated reasons. Whether patient will be offered a LifeVest will be determined tomorrow or the following day 5. Formal echocardiogram 6. Patient has severe bilateral common femoral artery disease. While he is not currently a candidate for bilateral femoral artery endarterectomy, should his heart improve and he returned to baseline, he should be assessed for claudication and possibly consider surgical endarterectomy. This should be determined on an outpatient basis at another time and not on this admission 7. Recommend aspirin 81 mg a day and Xarelto 2.5 p.o. twice daily for probably vascular disease Electronically signed by :
--- NOTE | 2021-09-11 15:21 | CT_ITS ---
PROCEDURE INFORMATION: Exam: CTA Chest With Contrast Exam date and time: 09/11/2021 3:21 PM Age: 80 years old Clinical indication: Shortness of breath; Additional info: Leg pain, recent covid, new o2 req TECHNIQUE: Imaging protocol: Computed tomographic angiography of the chest with contrast. 3D rendering (Not supervised by radiologist): MIP and/or 3D reconstructed images were created by the technologist. Radiation optimization: All CT scans at this facility use at least one of these dose optimization techniques: automated exposure control; mA and/or kV adjustment per patient size (includes targeted exams where dose is matched to clinical indication); or iterative reconstruction. Contrast material: ISOVUE 370; Contrast volume: 70 ml; Contrast route: INTRAVENOUS (IV); COMPARISON: CT ANGIO CHEST PE PROTOCOL 08/22/2021 2:50 PM FINDINGS: Pulmonary arteries: Normal. No pulmonary emboli. Aorta: There is moderate calcific atherosclerotic disease of the thoracic aorta without aneurysmal dilatation. Lungs: Patchy peripheral subpleural predominant ground-glass and linear opacities are correlate with known viral infection. Small bilateral bibasilar pleural effusions present. Pleural spaces: See Lungs finding. Heart: Moderate three-vessel calcific atherosclerotic disease of the coronary arteries. Postsurgical changes compatible with CABG procedure. Lymph nodes: Prominent mediastinal and hilar lymph nodes are likely reactive. Liver: Multiple calcific densities of the liver are likely related to prior granulomatous process. Gallbladder and bile ducts: There are surgical clips within the gallbladder fossa. Spleen: Multiple calcific densities of the spleen are likely related to prior granulomatous process. Bones/joints: Unremarkable. No acute fracture. Soft tissues: Unremarkable. IMPRESSION: Patchy peripheral subpleural predominant ground-glass and linear opacities are correlate with known viral infection. No CT angiography evidence of pulmonary embolism.
--- NOTE | 2021-09-11 15:33 | HMH.EDGENADL ---
ED Disposition Clinical Impression: Shortness of breath Disposition: Admitted As Inpatient Condition on Discharge: Serious - Critical Care Critical Care Time: No Attestation: On , the high probability of a clinically significant, sudden or life threatening deterioration of the following system(s) required my full and direct attention, intervention and personal management. The time I documented below is in addition to time spent performing reported procedures but includes the following listed in this critical care notation. Medical Decision Making - Santos Inquiry Pt receiving controlled substance: No Vital Signs: 09/11/21 15:16 09/11/21 16:00 09/11/21 16:30 Temperature 97.8 F Temperature Source Oral Pulse Rate 106 H 104 H Pulse Rate [Right Radial] 99 H Respiratory Rate 22 36 H 38 H Blood Pressure 126/79 122/73 Blood Pressure [Right Arm] 128/73 Blood Pressure Mean 86 87 Blood Pressure Mean [Right Arm] 91 Blood Pressure Source [Right Arm] Automatic Cuff Blood Pressure Position Blood Pressure Position [Right Arm] Sitting 02 Sat by Pulse Oximetry 93 L 94 L 92 L Oxygen Delivery Method Nasal Cannula Nasal Cannula Nasal Cannula Oxygen Flow Rate (LPM) 3 3 3 09/11/21 17:00 09/11/21 17:30 09/11/21 18:28 Temperature Temperature Source Pulse Rate 118 H 114 H 109 H Pulse Rate [Right Radial] Respiratory Rate 36 H 30 H 36 H Blood Pressure 122/68 120/73 116/71 Blood Pressure [Right Arm] Blood Pressure Mean 82 79 88 Blood Pressure Mean [Right Arm] Blood Pressure Source [Right Arm] Blood Pressure Position Blood Pressure Position [Right Arm] 02 Sat by Pulse Oximetry 91 L 95 94 L Oxygen Delivery Method Nasal Cannula Nasal Cannula Oxygen Flow Rate (LPM) 3 4.5 09/11/21 18:33 09/11/21 18:45 Temperature 97.8 F Temperature Source Pulse Rate 104 H 106 H Pulse Rate [Right Radial] Respiratory Rate 40 H 35 H Blood Pressure 89/66 L 112/67 Blood Pressure [Right Arm] Blood Pressure Mean 73 Blood Pressure Mean [Right Arm] Blood Pressure Source [Right Arm] Blood Pressure Position Sitting Blood Pressure Position [Right Arm] 02 Sat by Pulse Oximetry 90 L Oxygen Delivery Method Nasal Cannula Oxygen Flow Rate (LPM) 4.5 - Lab Data Lab Results 09/11/21 15:24: VBG pH 7.40, VBG pCO2 34.0 L, VBG pO2 37.5, VBG HCO3 20.6 L, VBG Total CO2 21.7 L, VBG O2 Saturation 69.3, VBG Base Excess -4.1 L 09/11/21 15:55: WBC 8.1, RBC 4.06 L, Hgb 12.9 L, Hct 39.8 L, MCV 98.2 H, MCH 31.8 H, MCHC 32.4, RDW 15.4, Plt Count 275, MPV 8.9, Neut % (Auto) 81.1 H, Lymph % (Auto) 11.3, [place] % (Auto) 5.6, Eos % (Auto) 0.7, Baso % (Auto) 1.2, Neut # (Auto) 6.6, Lymph # (Auto) 0.9, [place] # (Auto) 0.5, Eos # (Auto) 0.1, Baso # (Auto) 0.1 09/11/21 15:55: Sodium 128 L, Potassium 4.7, Chloride 93 L, Carbon Dioxide 24, Anion Gap 15.7 H, BUN 18, Creatinine 1.00, Estimated Creat Clear 62, Estimated GFR 72, Est GFR ( Amer) 87, Glucose 109 H, Calcium 8.0 L, Troponin I 0.67 H 09/11/21 15:55: NT-Pro-B Natriuret Pep 4760 H 09/11/21 15:55: SARS-CoV-2 (PCR) Not detected, Influenza A Untype (PCR) Not detected, Influenza Type B (PCR) Not detected 09/11/21 18:00: Lactate 3.7 H 09/11/21 18:45: Troponin I 0.81 H Result diagrams: 09/11/21 15:55 09/11/21 15:55 Orders (Tests/Meds): ED MEDICATIONS Generic Name Dose Route Start Last Admin Trade Name Freq PRN Reason Stop Dose Admin Fentanyl Citrate 25 mcg 09/11/21 19:58 Fentanyl 100mcg/2ml Vial IV 09/12/21 18:43 Q3MINP PRN Moderate to Severe Pain Fentanyl Citrate 50 mcg 09/11/21 19:58 Fentanyl 100mcg/2ml Vial IV 09/12/21 18:43 Q3MINP PRN Moderate to Severe Pain Fentanyl Citrate 25 mcg 09/11/21 19:58 Fentanyl 250mcg/5ml Vial IV 09/12/21 18:43 Q3MINP PRN Moderate to Severe Pain Fentanyl Citrate 50 mcg 09/11/21 19:58 Fentanyl 250mcg/5ml Vial IV 09/12/21 18:43 Q3MINP PRN Moderate to Severe P
--- NOTE | 2021-09-11 15:37 | ECG_ITS ---
APPROVED REPORT Exam: Resting ECG HR:100 bpm ECG Measurements Heart Rate 100 AXES TN 144 P 66 QRSd 93 QRS -22 QT 350 T 99 QTc 407 Conclusion SINUS TACHYCARDIA POSSIBLE ANTERIOR MYOCARDIAL INFARCTION , OF INDETERMINATE AGE [30 ms Q WAVE IN V3/V4, OR R < 0.2 mV IN V4] INFERIOR MYOCARDIAL INFARCTION , OF INDETERMINATE AGE [40+ ms Q WAVE AND/OR ST/T ABNORMALITY IN II/aVF] ABNORMAL ECG UNCONFIRMED REPORT Electronically signed by : Dinesh Starks MD 09/11/2021 21:53:32
[2021-09-11 16:17] LABS: Basophils # 0.1 K/mm3 (0-0.2); Basophils % 1.2 % (0.1-2.0); Eosinophils # 0.1 K/mm3 (0.0-0.4); Eosinophils % 0.7 % (0.1-12.0); Hematocrit 39.8 % (42.0-52.0); Hemoglobin 12.9 g/dL (14.1-18.0); Lymphocytes # 0.9 K/mm3 (0.7-4.5); Lymphocytes % 11.3 % (10-50); Mean Corpuscular HGB Conc 32.4 g/dL (31.8-35.4); Mean Corpuscular Hemoglobin 31.8 pg (27.0-31.2); Mean Corpuscular Volume 98.2 fl (80-94); Mean Platelet Volume 8.9 fl (7.4-10.4); Monocytes # 0.5 K/mm3 (0.1-1.0); Monocytes % 5.6 % (1.7-9.3); Neutrophils # 6.6 K/mm3 (1.8-7.8); Neutrophils % 81.1 % (37.0-80.0); Platelet Count 275 K/mm3 (142-424); Red Blood Count 4.06 M/mm3 (4.60-6.20); Red Cell Distribution Width 15.4 % (11.5-17.5); White Blood Count 8.1 K/mm3 (4.8-10.8)
[2021-09-11 16:18] LABS: Chloride 93 mmol/L (98-107); Sodium 128 mmol/L (136-145)
[2021-09-11 16:19] LABS: Potassium 4.7 mmoL/L (3.5-5.1)
[2021-09-11 16:21] LABS: Blood Urea Nitrogen 18 mg/dl (9-20); Creatinine Clearance Estimated 62 mL/min (50-200); Estimated Glomerular Filt Rate 72 ml/min (>60); GFR (African American) 87 ML/MIN (>60)
[2021-09-11 16:22] LABS: Anion Gap 15.7 mEq/L (5-15); Carbon Dioxide 24 mmol/L (22.0-30.0); Glucose 109 mg/dl (74-100)
[2021-09-11 16:36] LABS: Troponin I 0.67 ng/ml (0.00-0.034)
--- NOTE | 2021-09-11 16:38 | PC.NURSE ---
reported critical troponin to ER MD at this time
[2021-09-11 16:51] LABS: VBG Base Excess -4.1 mmol/L (-2.4-2.3); VBG HCO3 20.6 mmol/L (23-30); VBG Oxygen Saturation 69.3 % (50-70); VBG PO2 37.5 mmol/L (28-40); VBG Total CO2 21.7 mmol/L (23-27)
--- NOTE | 2021-09-11 17:18 | PC.NURSE ---
Pt increased tachypnea, RN increased 02 to 4.5 LPM
--- NOTE | 2021-09-11 17:20 | PC.NURSE ---
notified ER of having to increase pt O2 @ 4.5 L per NC contacted rad to check on status of CT read
--- NOTE | 2021-09-11 17:26 | ECG_ITS ---
APPROVED REPORT Exam: Resting ECG HR:111 bpm ECG Measurements Heart Rate 111 AXES DE 146 P 65 QRSd 94 QRS -28 QT 332 T 90 QTc 397 Conclusion SINUS TACHYCARDIA POSSIBLE ANTERIOR MYOCARDIAL INFARCTION , OF INDETERMINATE AGE [30 ms Q WAVE IN V3/V4, OR R < 0.2 mV IN V4] ABNORMAL ECG UNCONFIRMED REPORT Electronically signed by : Dinesh Starks MD 09/11/2021 21:51:29
--- NOTE | 2021-09-11 17:48 | PC.NURSE ---
notified ER pt CT scan result is in the computer
--- NOTE | 2021-09-11 18:01 | PC.NURSE ---
mud tank operator paging dr. parr
--- NOTE | 2021-09-11 18:09 | PC.NURSE ---
MELQUIADES PAULSON speaking with dr. beltran
--- NOTE | 2021-09-11 18:22 | PC.NURSE ---
MELQUIADES PAULSON speaking with dr. parr again at this time
--- NOTE | 2021-09-11 18:24 | PC.NURSE ---
gamewell operator paging optical laboratory technician staff for emergent cath per dr. parr gamewell operator also asked to page dr. carmen after optical laboratory technician staff warehouse driver notified
[2021-09-11 18:28] LABS: NT Pro Brain Natriuretic Pep. 4760 pg/mL (0-450)
--- NOTE | 2021-09-11 18:28 | PC.NURSE ---
Called registration and asked for family to come back. Melinda and Saima prepping pt for mobile home laborer at this time.
--- NOTE | 2021-09-11 18:29 | PC.NURSE ---
Spoke with Tricia Campbell and Stacy to notify them that Dr. Hodges would like to take patient to [facility] now. Informed team that I was informed that patient was not a STEMI.
[2021-09-11 18:32] LABS: Lactic Acid 3.7 mmol/L (0.7-2.1)
--- NOTE | 2021-09-11 18:34 | PC.NURSE ---
speaking with Dr. Starks
--- NOTE | 2021-09-11 18:37 | PC.NURSE ---
Lab at bedside drawing 2nd troponin at this time
[2021-09-11 18:38] LABS: Coronavirus 19, PCR Not Detected (NotDetected); Influenza A, PCR Not Detected (NotDetected); Influenza B, PCR Not Detected (NotDetected)
[2021-09-11 19:31] LABS: Troponin I 0.81 ng/ml (0.00-0.034)
--- NOTE | 2021-09-11 19:58 | PC.NURSE ---
Notified House of troponin due to being unable to reach lab support service tech staff at this time. Wanted to make sure info was passed along.
--- NOTE | 2021-09-11 20:10 | PC.NURSE ---
patient up to floor from cathlab at this time.
[2021-09-11 20:18] LABS: Microscopic, Urine URINE MICROSCOPIC (MICROSCOPIC)
[2021-09-11 20:25] LABS: Appearance,Urine CLEAR (Clear); Bilirubin,Urine Negative (Negative); Blood, Urine Negative (Negative); Color,Urine YELLOW (Yellow); Glucose,Urine (UA) Negative (Negative); Ketones,Urine 1+ (Negative); Leukocyte Esterase,Urine Negative (Negative); Nitrate,Urine Negative (Negative); PH,Urine 5.5 (5.0-8.5); Protein,Urine TRACE (Negative); Specific Gravity, Urine 1.015 (1.005-1.030)
[2021-09-11 20:41] LABS: Bacteria,Urine Trace /lpf; WBC,Urine Occasional #/hpf (0-3)
[2021-09-12] VITALS: BP 118/79; PULSE 110; PULSE 124; RESP 40; TEMP 37.2; O2SAT 91
[2021-09-12 00:39] LABS: Reflex Lactic Add Lactic Reflex
[2021-09-12 00:41] LABS: Lactic Acid Follow Up (RFLX 1) 2.3 mmol/L (0.7-2.1); Reflex Lactic (2 hrs) Add Lactic Reflex
[2021-09-12 01:00] VITALS: BP 111/67; PULSE 105; RESP 38; TEMP 37.3; O2SAT 91
[2021-09-12 01:51] LABS: Lactic Acid Follow up (RFLX 2) 3.5 mmol/L (0.7-2.1)
[2021-09-12 02:00] VITALS: BP 110/71; PULSE 122; RESP 44; TEMP 37.5; O2SAT 91
[2021-09-12 02:40] VITALS: O2SAT 93
[2021-09-12 03:00] VITALS: BP 116/78; PULSE 123; RESP 46; TEMP 37.4; O2SAT 92
--- NOTE | 2021-09-12 04:23 | PC.NURSE ---
dispatch contacted to go to patients home to make contact with and bring her to the hospital since she is not answering phone calls
--- NOTE | 2021-09-12 05:07 | PC.NURSE ---
0334 Pt found to be unresponsive, RAPID RED called. 0335 No pulse, no rr detected. CODE BLUE called. CPR started, defib pads in place. 0336 [address] administered 0[address] Hodges paged 033 Rhythm check-no pulse. CPR continued. 033 MD in room 0340 1 mg Epinephrine administered [address] by 034 Dr Hodgse notified of pt status. 034 Rhythm check-no pulse, CPR continued. 034 Vtach detected, shock delivered 034 1 mg Epinephrine administered 034 Rhythm check-no pulse, CPR continued. 034 Dr oHdges notified of pt status. 0346 1 mg Epinephrine administered 0337 Rhythm check - no pulse 0338 Time of called by Dr. Mario 0355 Attempted to call on house phone [phone] Attempted to call on cell phone [phone] Coroners case - Jim Stock contacted, pt cleared. 035 Attempted to call on house phone [phone] Attempted to call on cell phone 0401 SABINE notified. Spoke with Marla Arreola. Pt ruled out. [id number] MD precision lens technician notified of pt expiration 416 Attempted to call on house phone 041 Attempted to call on cell phone 0418 House notified of pt not answering phone, house to notify dispatch. SEE NOTE. 0420 Pt tubes/IV/drains removed. Pt cleaned and head elevated.
--- NOTE | 2021-09-12 07:13 | P.PN_ITS ---
Acute Rapid Response Note - Subjective Date Responded: 09/12/21 Time Responded: 03:30 - Objective Findings: Vital Signs - Last 4 Hours Temperature 98.2 F 09/12/21 03:07 Temperature Source Axillary 09/12/21 03:07 Pulse Rate 101 H 09/12/21 03:07 Respiratory Rate 30 H 09/12/21 03:07 Blood Pressure 108/70 L 09/12/21 03:07 Blood Pressure Mean 82 09/12/21 03:07 Blood Pressure Source Automatic Cuff 09/12/21 03:07 Blood Pressure Position Supine 09/12/21 03:07 02 Sat by Pulse Oximetry 92 L 09/12/21 03:07 Oxygen Delivery Method 09/12/21 03:07 Oxygen Flow Rate (LPM) 15 09/12/21 04:49 Lab Results for Past 12 Hours 09/12/21 01:00: Lactate 3.5 H 09/11/21 22:10: Lactate 2.3 H 09/11/21 20:00: Urine Color Yellow, Urine Appearance Clear, Urine pH 5.5, Ur S pecific [place] 1.015, Urine Protein Trace, Urine Glucose (UA) Negative, Urine Ketones 1+, Urine Blood Negative, Urine Nitrate Negative, Urine Bilirubin Negative, Urine Urobilinogen 1.0, Ur Leukocyte Esterase Negative, Urine RBC None, Urine WBC Occasional, Ur Squamous Epith Cells None, Urine Bacteria Trace 09/11/21 18:45: Troponin I 0.81 H 09/11/21 15:55: SARS-CoV-2 (PCR) Not detected, Influenza A Untype (PCR) Not detected, Influenza Type B (PCR) Not detected 09/11/21 15:55: Lactate 3.7 H code blue Rapid Response Exam - General General appearance: other (code blue) - Head Head exam: atraumatic - Eye Eye exam: Present: other (nonresponsive ) - ENT ENT exam: Present: mucous membranes dry - Neck Neck exam: Present: trachea midline - Respiratory Respiratory exam: Present: respiratory distress, other (apnea) - Cardiovascular Cardiovascular exam: Present: other (no pulse ) - Abdominal Exam Abdominal exam: Present: soft - Extremities Exam Extremities exam: Present: pedal edema - Neurological Exam Neurological exam: Present: other (nonresponsive ) - Skin Skin exam: Absent: rash RR Procedures/Assess/Plan - Bedside Intubation Time Out Performed: No Sedative: none Laryngoscope: Dawn Tube size: 7.5 Tube uncuffed: No Secured location: teeth Placement confirmation: visualized tube passing through cords, confirmation by capnometry Patient tolerated procedure intubation: no complications Intubation Complications: none - Assessment and plan all Dx Assessment and Plan for all problems:: pt with code blue and failed to rerspond to acls and procnounced at [id number]
--- NOTE | 2021-09-12 07:19 | HMH.DEATH ---
Pronouncement Note - Date and Time of Date of : 09/12/21 Time of : 03:48 - PCOD Preliminary cause of : Cardiac arrest - Additional Data Confirmation of : no pulse, no respirations, no heart sounds, pupils fixed and dilated Family: not available Attending/PCP notified?: Yes Attending physician: Dinesh Davis MD Was code activated?: Yes Autopsy requested?: No mail distribution scheme examiner notified?: Yes Organ bank notified?: Yes Advance directives: No
--- NOTE | 2021-09-12 07:41 | [facility].HPDC ---
General - General Admission date:: 09/11/21 Discharge date: 09/12/21 *Admission Date: 09/11/21 *Chief complaint: Shortness of breath *History of present illness: 80-year-old male presented to my office on September 11 for increasing weakness and shortness of breath with loss of appetite over the preceding 3 days. He was accompanied by his . Patient was hospitalized earlier in the month with COVID-19 pneumonia. In the office patient was in respiratory distress with O2 sats in the low 80s despite use of nasal cannula at 3 L/min. Patient was tachycardic. He had left calf tenderness in addition to his shortness of breath. I had concern over possible pulmonary embolism and patient was sent to the ER. In the ER patient was ruled out for pulmonary embolism but was found to have a non-STEMI. Cardiology service was consulted and patient was taken to the [facility]. 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 Diuresis with Lasix 2. Start Entresto first and then add carvedilol once patient is tolerating the Entresto. Patient's sinus tachycardia is compensatory at this point and should not be treated with beta-blockers until diuresis and adequate afterload reduction is achieved 3. LDL less than 55 to be achieved with high intensity statin 4. Patient has an ejection fraction which warrants a LifeVest however patient may not be a candidate for other associated reasons. Whether patient will be offered a LifeVest will be determined tomorrow or the following day 5. Formal echocardiogram 6. Patient has severe bilateral common femoral artery disease. While he is not currently a candidate for bilateral femoral artery endarterectomy, should his heart improve and he returned to baseline, he should be assessed for claudication and possibly consider surgical endarterectomy. This should be determined on an outpatient basis at another time and not on this admission 7. Recommend aspirin 81 mg a day and Xarelto 2.5 p.o. twice daily for probably vascular disease [facility] History I have reviewed the patient's past medical history: Yes Medical History: Reports:: Asthma, Atherosclerotic Heart Disease, Hyperlipidemia, Hypertension, Lung Disease, Myocardial Infarction, Tuberculosis Denies:: Diabetes Mellitus Type 1, Diabetes Mellitus Type 2 *Have you ever received a pneumonia vaccine?: Yes *Have you received a flu vaccine this season?: Yes Other Medical History: Reports: Chemotherapy, Radiation Therapy Comment:: COVID-19 pneumonia with respiratory failure 2021 Other Surgeries: Yes: Colon Resection, Colostomy, Open Heart Surgery, Other - *Social History Smoking Status: Never smoker Alcohol Intake: never Substance Use Type: denies use *Occupational Status:: retired Household Members: spouse *Travel in the last 8 weeks: None Family Hx:: Cancer Review of Systems - Review of Systems Review of systems:: unable to obtain - Constitutional Denies body ache(s), Denies chills, Denies lack of energy - *Cardiovascular Denies chest pain, Denies chest pain at rest - *Respiratory Reports chest congestion, Reports cough, Reports shortness of breath, Reports shortness of breath with activity, Denies coughing up blood Exam Vital signs and Labs for Last 24 Hours: Temp Pulse Resp BP Pulse Ox 98.2 F 101 H 30 H 108/70 L 92 L 09/12/21 03:07 09/12/21 03:07 09/12/21 03:07 09/12/21 03:07 09/12/21 03:07 Laboratory Results - last 24 hr 09/11/21 15:24: VBG pH 7.40, VBG pCO2 34.0 L, VBG pO2 37.5, VBG HCO3 20.6 L, VBG Total CO2 21.7 L, VBG O2 Saturation 69.3, VBG Base Excess -4.1 L 09/11/21 15:55
== END 2021-09-12 10:10 | disposition expired ==
LOC: ER 18:47 → CATHLAB 18:48 → 2ND 18:57
PROVIDERS: Admitting Provider Internal Medicine Adolescent Medicine; Emergency Provider Student in an Organized Health Care Education/Training Program; PCP Family Medicine; Referring Provider Internal Medicine; Visit Provider Family Medicine
PROC: 4A023N7 Measurement of Cardiac Sampling and Pressure, Left Heart, Percutaneous Approach (ICD-10-PCS; principal; 2021-09-11 18:40)
DX: I21.4 Non-ST elevation (NSTEMI) myocardial infarction (principal); J18.9 Pneumonia, unspecified organism; I70.92 Chronic total occlusion of artery of the extremities; I25.10 Atherosclerotic heart disease of native coronary artery without angina pectoris; E78.5 Hyperlipidemia, unspecified; I10 Essential (primary) hypertension; I25.2 Old myocardial infarction; U09.9 Post COVID-19 condition, unspecified; I73.9 Peripheral vascular disease, unspecified; I70.222 Atherosclerosis of native arteries of extremities with rest pain, left leg; I46.9 Cardiac arrest, cause unspecified; J45.909 Unspecified asthma, uncomplicated; Z86.11 Personal history of tuberculosis; Z95.1 Presence of aortocoronary bypass graft; Z20.822 Contact with and (suspected) exposure to COVID-19
CPT/HCPCS: 93459; 36246; 31500; 36415; 71275; 75710; 80048; 81001; 82803; 83605; 83880; 84484; 85025; 87040; 93005; 93458; 99152; 99153; 99285; C1725; C1769; C1894; C9803; J1644; Q9967; U0003; U0005